=== PATIENT | female | born 1975 | race Two or more races ===

== ENCOUNTER 2018-06-02 14:07 | Emergency (ER) | payer SELFPAY ==
[2018-06-02 14:14] VITALS: BP 112/72; PULSE 76; RESP 18; TEMP 97.4; O2SAT 99
--- NOTE | 2018-06-02 14:34 | ED PDOC ---
HPI: Wound Care - HPI Time Seen by Provider: 06/02/18 14:17 Chief Complaint (Nursing): Needle Stick Chief Complaint (Provider): Needle stick History Per: Patient Additional Complaint(s): Pt was suturing when she was stuck with solid suture needle on L index finger, + blood. Pt irrigated wound. Source patient: MR #[id number] Past Medical History Reviewed: Nursing Documentation, Vital Signs Vital Signs: Last Vital Signs Temp 97.4 F L 06/02/18 14:10 Pulse 76 06/02/18 14:10 Resp 18 06/02/18 14:10 BP 112/72 06/02/18 14:10 Pulse Ox 99 06/02/18 14:10 - Medical History Other PMH: Thyroid nodules - Family History Family History: States: Unknown Family Hx - Social History Current smoker - smoking cessation education provided: No Alcohol: None - Allergies Allergies/Adverse Reactions: Allergies Allergy/AdvReac Type Severity Reaction Status Date / Time Penicillins Allergy RASH Verified 06/02/18 14:10 Review of Systems Skin: Positive for: Other (Needle stick) Physical Exam - Reviewed Nursing Documentation Reviewed: Yes Vital Signs Reviewed: Yes - Physical Exam Appears: Positive for: Well, No Acute Distress Skin: Positive for: Normal Color, Warm, Dry Extremity: Positive for: Other (L HAND: 2nd digit distal anterior puncture wound) - Laboratory Results Result Diagrams: 06/02/18 14:35 06/02/18 14:30 - ECG O2 Sat by Pulse Oximetry: 99 Medical Decision Making Medical Decision Makin yo female with needle stick. - labs Disposition - Clinical Impression Clinical Impression: Needle stick injury - Disposition Disposition: Routine/Home Disposition Time: 15:45 Condition: GOOD Additional Instructions: FOLLOW-UP WITH [facility]. Instructions: Blood or Body Fluid Exposure Forms: [facility] ([place])
[2018-06-02 14:56] LABS: BASO # 0.1 K/uL (0.0-0.2); BASO % 0.7 % (0.0-2.0); EOS % 0.5 % (0.0-4.0); HEMOGLOBIN 13.9 g/dL (12.0-16.0); LYMPH # 1.6 K/uL (1.0-4.3); LYMPH % 17.5 % (20.0-40.0); MEAN CELL VOLUME 87.9 fl (81.0-99.0); MEAN PLATELET VOLUME 8.3 fl (7.2-11.7); MONO # 0.6 K/uL (0.0-0.8); MONO % 6.7 % (0.0-10.0); NEUT # 6.7 K/uL (1.8-7.0); NEUT % 74.6 % (50.0-75.0); NRBC % 0.1 % (0.0-0.0); RBC 4.79 Mil/uL (3.80-5.20)
[2018-06-02 15:00] LABS: SQUAMOUS EPITHIAL 2 /hpf (0-5); URINE AMORPHOUS SEDIMENT RARE /ul (<OCC); URINE BACTERIA RARE (<OCC); URINE BILIRUBIN NEGATIVE (NEGATIVE); URINE BLOOD NEGATIVE (NEGATIVE); URINE CLARITY TURBID (Clear); URINE COLOR YELLOW (YELLOW); URINE GLUCOSE (UA) NEG (NEGATIVE); URINE LEUKOCYTE ESTERASE NEG Leu/uL (Negative); URINE PROTEIN NEGATIVE (NEGATIVE); URINE UROBILINOGEN 0.2-1.0 mg/dL (0.2-1.0)
[2018-06-02 15:18] LABS: ALB/GLOB RATIO 1.6 (1.0-2.1); ALBUMIN 4.7 g/dL (3.5-5.0); ALT/SGPT 46 U/L (9-52); AMYLASE 117 U/L (30-110); AST/SGOT 64 U/L (14-36); BLOOD UREA NITROGEN 24 mg/dl (7-17); CALCIUM 9.6 mg/dL (8.4-10.2); GFR NON-AFRICAN AMERICAN > 60
[2018-06-02 15:48] LABS: HCG,QUALITATIVE URINE NEGATIVE (NEGATIVE)
[2018-06-02 19:46] LABS: HEPATITIS B SURFACE AG Negative (NEGATIVE)
[2018-06-02 19:51] LABS: HEPATITIS A IGM NEGATIVE (NEGATIVE); HEPATITIS B CORE AB NEGATIVE (NEGATIVE)
[2018-06-02 20:03] LABS: HEPATITIS C ANTIBODY NEGATIVE (NEGATIVE)
[2018-06-02 21:56] LABS: RAPID PLASMA REAGIN REACTIVE (NONREACTIVE)
== END 2018-06-02 15:40 | disposition home or self-care (01) ==
LOC: H.ER 14:07
DX: S61.232A Puncture wound without foreign body of right middle finger without damage to nail, initial encounter (principal); W46.1XXA Contact with contaminated hypodermic needle, initial encounter; Y99.0 Civilian activity done for income or pay